=== PATIENT | male | born 1970 | race Two or more races ===

== ENCOUNTER 2023-10-19 09:46 | Emergency (ER) | payer MEDICARE, OTHER ==
[~2023-10-19] VITALS: Ht 185.4 cm; Wt 138.6 kg
[2023-10-19 10:01] VITALS: BP 133/102; PULSE 82; RESP 18; TEMP 98.7; O2SAT 93
[2023-10-19] MEDS ORDERED: HYDR-4798 PO (10:56)
== END 2023-10-19 11:02 | disposition home or self-care (01) ==
LOC: ER 09:46
DX: G89.29 Other chronic pain (principal); M54.50 Low back pain, unspecified; Z76.0 Encounter for issue of repeat prescription; Z79.899 Other long term (current) drug therapy; Z88.8 Allergy status to other drugs, medicaments and biological substances

== ENCOUNTER 2024-02-12 11:02 | Emergency (ER) | payer OTHER, MEDICARE, MEDICAID ==
[~2024-02-12] VITALS: Ht 185.4 cm; Wt 110.3 kg
[~2024-02-12 11:02] MED LIST: HYDR-4798 PO
[2024-02-12 12:04] LABS: Basophils # (auto) 0.1 10 ^3/uL (0-0.2); Basophils % (auto) 0.9 % (0.0-2.0); Eosinophils # (auto) 0.3 10 ^3/uL (0-0.8); Eosinophils % (auto) 2.7 % (0.0-7.0); Hematocrit 42.6 % (41.0-53.0); Hemoglobin 14.7 g/dL (13.5-17.5); Lymphocytes # (auto) 2.9 10 ^3/uL (0.4-5.4); Lymphocytes % (auto) 29.9 % (10.0-50.0); Mean Corpuscular Hemoglobin 30.1 pg (28.0-32.0); Mean Corpuscular Hgb Conc. 34.4 g/dL (32.0-36.0); Mean Corpuscular Volume 87.3 fL (80.0-100.0); Monocytes # (auto) 0.6 10 ^3/uL (0-1.3); Monocytes % (auto) 5.7 % (0.0-12.0); Neutrophils # (auto) 5.9 10 ^3/uL (1.6-8.6); Neutrophils % (auto) 60.8 % (37.0-80.0); Red Blood Cells 4.88 10^6/uL (4.5-5.90); Red Cell Distribution Width 14.2 % (11.8-14.3); White Blood Cell 9.7 10^3/uL (4.4-10.8)
[2024-02-12 12:25] LABS: Alanine Aminotransferase 107 U/L (7-40); Albumin 4.4 g/dL (3.2-4.8); Alkaline Phosphatase 137 U/L (46-116); Anion Gap 5 (5-15); Aspartate Aminotransferase 18 U/L (13-40); BUN/Creatinine Ratio 16.7 (10.0-20.0); Blood Urea Nitrogen 20 mg/dL (9-23); CRP High Sensitivity 0.49 mg/dL (<1.0); Calcium 9.4 mg/dL (8.5-10.1); Carbon Dioxide 27 mmol/L (20-30); Chloride 106 mmol/L (98-107); Glucose 112 mg/dL (74-106); Potassium 4.3 mmol/L (3.5-5.1); Sodium 138 mmol/L (136-145)
[2024-02-12 12:26] LABS: Bilirubin, Total 0.2 mg/dL (0.2-1.0); Total Protein 7.3 g/dL (5.7-8.2)
[2024-02-12 12:36] LABS: Urine Bacteria NONE SEEN /hpf (None Seen); Urine Blood TRACE /uL (Negative); Urine Clarity Clear (Clear); Urine Color Yellow (Yellow); Urine Protein, UAD TRACE (Negative); Urine Urobilinogen Normal (Negative); Urine WBC <1 /hpf (0 - 3)
[2024-02-12 12:46] LABS: Erythrocyte Sedimentation Rate 18 mm/hr (0-20)
[2024-02-12 13:14] VITALS: BP 134/87; PULSE 76; RESP 20; O2SAT 94
[2024-02-14 00:07] LABS: Chlamydia Trachomatis, NAA Negative (Negative); Neisseria gonorrhoeae, NAA Negative (Negative)
== END 2024-02-12 13:20 | disposition home or self-care (01) ==
LOC: ER 11:02
DX: N43.3 Hydrocele, unspecified (principal)
CPT/HCPCS: 36415; 76870; 80053; 81001; 83605; 85025; 85652; 86141

== ENCOUNTER 2024-03-30 14:38 | Emergency (ER) | payer MEDICARE, MEDICAID ==
[~2024-03-30] VITALS: Ht 185.4 cm; Wt 136.6 kg
[2024-03-30 15:18] VITALS: BP 152/104; PULSE 75; RESP 18; O2SAT 93
[2024-03-30 17:11] LABS: Basophils # (auto) 0.1 10 ^3/uL (0-0.2); Basophils % (auto) 1.1 % (0.0-2.0); Eosinophils # (auto) 0.5 10 ^3/uL (0-0.8); Eosinophils % (auto) 4.4 % (0.0-7.0); Hematocrit 44.5 % (41.0-53.0); Hemoglobin 14.7 g/dL (13.5-17.5); Lymphocytes # (auto) 3.3 10 ^3/uL (0.4-5.4); Lymphocytes % (auto) 27.8 % (10.0-50.0); Mean Corpuscular Hemoglobin 28.7 pg (28.0-32.0); Mean Corpuscular Hgb Conc. 32.9 g/dL (32.0-36.0); Mean Corpuscular Volume 87.1 fL (80.0-100.0); Monocytes # (auto) 0.8 10 ^3/uL (0-1.3); Monocytes % (auto) 6.2 % (0.0-12.0); Neutrophils # (auto) 7.3 10 ^3/uL (1.6-8.6); Neutrophils % (auto) 60.5 % (37.0-80.0); Red Blood Cells 5.11 10^6/uL (4.5-5.90); Red Cell Distribution Width 15.7 % (11.8-14.3); White Blood Cell 12.1 10^3/uL (4.4-10.8)
[2024-03-30 17:35] LABS: Alanine Aminotransferase 18 U/L (7-40); Albumin 4.5 g/dL (3.2-4.8); Alkaline Phosphatase 83 U/L (46-116); Anion Gap 5 (5-15); Aspartate Aminotransferase 17 U/L (13-40); BUN/Creatinine Ratio 19.5 (10.0-20.0); Bilirubin, Total 0.2 mg/dL (0.2-1.0); Blood Urea Nitrogen 24 mg/dL (9-23); CRP High Sensitivity 0.33 mg/dL (<1.0); Calcium 10.1 mg/dL (8.5-10.1); Carbon Dioxide 30 mmol/L (20-30); Chloride 105 mmol/L (98-107); Glucose 106 mg/dL (74-106); Potassium 4.8 mmol/L (3.5-5.1); Sodium 140 mmol/L (136-145)
[2024-03-30 19:08] LABS: Urine Bacteria None Seen /hpf (None Seen)
[2024-03-30 19:32] LABS: Urine Blood 2+ /uL (Negative); Urine Clarity Clear (Clear); Urine Color Yellow (Yellow); Urine Mucus FEW (None Seen); Urine Protein, UAD 1+ (Negative); Urine Specific Gravity 1.028 (1.001-1.035); Urine Urobilinogen 2 mg/dL (Negative); Urine WBC 1 /hpf (0 - 3); Urine pH 5.5 (5.0-9.0)
[2024-04-01 18:06] LABS: Chlamydia Trachomatis, NAA Negative (Negative); Neisseria gonorrhoeae, NAA Negative (Negative)
== END 2024-03-30 21:50 | disposition left against medical advice (07) ==
LOC: ER 14:38
DX: N50.89 Other specified disorders of the male genital organs (principal); J44.9 Chronic obstructive pulmonary disease, unspecified; E11.9 Type 2 diabetes mellitus without complications; K21.9 Gastro-esophageal reflux disease without esophagitis; M10.9 Gout, unspecified; F41.9 Anxiety disorder, unspecified; Z53.29 Procedure and treatment not carried out because of patient's decision for other reasons; Z98.890 Other specified postprocedural states; Z88.8 Allergy status to other drugs, medicaments and biological substances; Z79.899 Other long term (current) drug therapy
CPT/HCPCS: 36415; 76870; 80053; 81001; 83605; 83880; 85025; 86141

== ENCOUNTER 2024-06-03 19:13 | Emergency (ER) | payer OTHER, MEDICARE ==
[~2024-06-03] VITALS: Ht 175.3 cm; Wt 50.0 kg
[2024-06-03 19:57] VITALS: BP 172/123; PULSE 91; RESP 20; O2SAT 97
[2024-06-03] MEDS: cloNIDine HCL 0.1 MG TAB PO ONE (22:31)
[2024-06-03] MEDS: HYDROcodone-ACET 10/325MG TAB PO ONE (22:32)
[2024-06-04] MEDS ORDERED: OXY10CRT PO (10:16)
== END 2024-06-04 03:25 | disposition left against medical advice (07) ==
LOC: EDBD 19:13 → EDUNIT# 19:13 → ER 19:13
DX: M79.10 Myalgia, unspecified site (principal); R94.31 Abnormal electrocardiogram [ECG] [EKG]; Z53.21 Procedure and treatment not carried out due to patient leaving prior to being seen by health care provider
CPT/HCPCS: 93005

== ENCOUNTER 2024-06-04 07:56 | Emergency (ER) | payer OTHER, MEDICARE ==
[~2024-06-04] VITALS: Ht 185.4 cm; Wt 131.1 kg
[2024-06-04] MEDS: cloNIDine HCL 0.1 MG TAB PO ONE (08:57)
[2024-06-04] MEDS: oxyCODONE ER 10 MG TAB PO ONE (09:04)
[2024-06-04 09:57] VITALS: BP 169/98; PULSE 79; RESP 18; TEMP 98.4; O2SAT 95
[2024-06-04] MEDS ORDERED: OXY10CRT PO (10:16)
== END 2024-06-04 10:22 | disposition home or self-care (01) ==
LOC: ER 07:56
DX: G89.29 Other chronic pain (principal); M54.50 Low back pain, unspecified; I10 Essential (primary) hypertension; J44.9 Chronic obstructive pulmonary disease, unspecified; E11.9 Type 2 diabetes mellitus without complications; Z91.199 Patient's noncompliance with other medical treatment and regimen due to unspecified reason; Z88.6 Allergy status to analgesic agent